=== PATIENT | male | born 2000 | race Caucasian/White ===

== ENCOUNTER 2025-01-20 20:21 | Emergency (ER) | payer SELFPAY ==
[~2025-01-20] VITALS: Ht 170.2 cm; Wt 73.0 kg
[2025-01-20 20:36] VITALS: O2SAT 100
[2025-01-20] MEDS ORDERED: TETANUS, DIPHTHERIA, PERTUSSIS VAC/PF 0.5ML (>10YR OLD) IM ONE (23:00)
[2025-01-21] MEDS: TETANUS, DIPHTHERIA, PERTUSSIS VAC/PF 0.5ML (>10YR OLD) IM ONE (00:30)
[2025-01-21] MEDS ORDERED: CEPH500C2 MT (00:31)
[2025-01-21 00:51] VITALS: BP 117/68; PULSE 89; RESP 18; TEMP 36.7; O2SAT 100
== END 2025-01-21 00:52 | disposition home or self-care (01) ==
LOC: EDBD → ER 20:25
DX: S61.411A Laceration without foreign body of right hand, initial encounter (principal); W45.8XXA Other foreign body or object entering through skin, initial encounter; Y93.89 Activity, other specified; Y92.89 Other specified places as the place of occurrence of the external cause; Y99.8 Other external cause status
CPT/HCPCS: 12001; 73130; 90471; 90715; 96372; 99283; 99291

== ENCOUNTER 2025-01-23 13:13 | Emergency (ER) | payer MEDICAID ==
[~2025-01-23] VITALS: Ht 165.1 cm; Wt 63.0 kg
[~2025-01-23 13:13] MED LIST: CEPH500C2 MT
[2025-01-23 13:16] VITALS: BP 110/65; RESP 16; TEMP 37; O2SAT 98
[2025-01-23 13:20] VITALS: PULSE 85; O2SAT 99
== END 2025-01-23 15:08 | disposition home or self-care (01) ==
LOC: ER 13:13
DX: Z48.00 Encounter for change or removal of nonsurgical wound dressing (principal)
CPT/HCPCS: 99281

== ENCOUNTER 2025-01-25 12:36 | Emergency (ER) | payer SELFPAY ==
[~2025-01-25] VITALS: Ht 170.2 cm; Wt 75.0 kg
[2025-01-25 12:37] VITALS: O2SAT 96
[2025-01-25 12:53] VITALS: BP 98/65; PULSE 64; RESP 16; TEMP 37.1; O2SAT 100
== END 2025-01-25 15:03 | disposition home or self-care (01) ==
LOC: ER 12:36
DX: M79.89 Other specified soft tissue disorders (principal)
CPT/HCPCS: 99281

== ENCOUNTER 2025-02-15 18:42 | Emergency (ER) | payer SELFPAY ==
[~2025-02-15] VITALS: Ht 172.7 cm; Wt 63.0 kg
[2025-02-15 18:48] VITALS: O2SAT 100
[2025-02-15 18:49] VITALS: BP 126/59; PULSE 74; RESP 16; TEMP 36.7; O2SAT 99
[2025-02-15] MEDS: IBUPROFEN 600MG TABLET PO ONE (21:45)
[2025-02-15] MEDS: LIDOCAINE HCL/PF 1% 10 MG/ML 5ML VIAL INFIL ONE (23:45)
[2025-02-16] MEDS: TETANUS, DIPHTHERIA, PERTUSSIS VAC/PF 0.5ML (>10YR OLD) IM ONE (00:42)
[2025-02-16] MEDS ORDERED: NAPR-1176 MT (01:09)
== END 2025-02-16 01:39 | disposition home or self-care (01) ==
LOC: ER 18:42
DX: L60.0 Ingrowing nail (principal); Z79.1 Long term (current) use of non-steroidal anti-inflammatories (NSAID); Z79.899 Other long term (current) drug therapy
CPT/HCPCS: 73620; 11730; 99284; 90715; 90471; J2003; Z7610